=== PATIENT | female | born 1960 | race Caucasian/White ===

== ENCOUNTER 2025-07-19 05:41 | Day surgery (SDC) | payer MEDICARE, OTHER ==
[2025-07-19] VITALS (8 sets, daily range): BP systolic 123–159; BP diastolic 53–75; PULSE 45–73; RESP 14–16; TEMP 97.7; O2SAT 98–100
[~2025-07-19] VITALS: Ht 165.1 cm; Wt 70.0 kg
[~2025-07-19 05:41] MED LIST: IBAN150T21 PO; ROSU10TA98 PO
[2025-07-19] MEDS: ceFAZolin 2gm/dext,iso 50mL 50 ML IV ONE ×2 (06:30→06:31)
[2025-07-19] MEDS: ringers solution, lacted 1,000 ML IV SCH (06:37)
[2025-07-19] MEDS ORDERED: BUPIVAcaine/PF 2.5mg/ml (0.25%) 10ml vial ONE (06:51)
[2025-07-19] MEDS ORDERED: LIDOcaine 1% (10mg/ml)w/preservative inj. 20ml MDV ONE (06:52)
[2025-07-19 07:00] LABS: ISTAT ANION GAP 9.0 (8-12); ISTAT BUN 13.0 mg/dL (7-18); ISTAT CL 105.0 mmol/L (99-107); ISTAT CREATININE 0.7 mg/dL (0.6-1.1); ISTAT GLUCOSE 85.0 mg/dL (70-104); ISTAT HGB 11.6 g/dl (12.0-16.0); ISTAT Hct 34.0 %PCV (35-45); ISTAT IONIZED CALCIUM 1.24 mmol/L (1.03-1.32); ISTAT K 4.6 mmol/L (3.5-5.1); ISTAT NA 139.0 mmol/L (135-145); ISTAT TOTAL CO2 25.0 mmol/L (24-32); ISTAT eGFR 84.0 ML/MIN; POC BUN/CREATININE RATIO 18.6 (6.6-38.0)
[2025-07-19] MEDS ORDERED: LIDOcaine 2% (20mg/ml) 5ml vial ONE (07:18)
[2025-07-19] MEDS ORDERED: dexamethasone sod phosphate 4mg/ml inj. ONE (07:18)
[2025-07-19] MEDS ORDERED: fentaNYL/PF 50MCG/1 ML 2ML syringe ONE (07:18)
[2025-07-19] MEDS ORDERED: propofol inj 20 ML IV ONE (07:18)
[2025-07-19] MEDS ORDERED: midazolam 1 mg/ML 2ml injection ONE (07:18)
[2025-07-19] MEDS ORDERED: ondansetron/PF 4mg/2ml inj ONE (07:19)
[2025-07-19] MEDS ORDERED: fentaNYL/PF 50MCG/1 ML 2ML syringe IV PRN ×2 (07:25)
[2025-07-19] MEDS ORDERED: ondansetron/PF 4mg/2ml inj IV PRN (07:25)
[2025-07-19] MEDS ORDERED: ringers solution, lacted 1,000 ML IV SCH (07:25)
[2025-07-19] MEDS ORDERED: morphine 4 MG/ML inj SYRINge IV PRN (07:25)
[2025-07-19] MEDS ORDERED: labetalol 20mg/4ml (5mg/ml) syringe IV PRN (07:25)
[2025-07-19] MEDS ORDERED: hydrALAZINE 20mg/ml inj. IV PRN (07:25)
[2025-07-19] MEDS ORDERED: acetaminophen 1,000mg/100ml IV 100 ML IV ONE (07:54)
[2025-07-19] MEDS: BUPIVAcaine/PF 2.5mg/ml (0.25%) 10ml vial IJ ONE (08:10)
[2025-07-19] MEDS: LIDOcaine 1% 30ml preserv. free vial IJ ONE (08:14)
--- NOTE | 2025-07-19 08:51 | OPERATIVE REPORT ---
Operative Report Providers to CC: ANGEL ARTHUR DO ~ Date of Procedure: Jul 19, 2025 Pre-Operative Diagnosis: Right breast cancer, positive anterior and anterior inferior margin Post-Operative Diagnosis SAME as PRE-Op Procedure Performed Right breast re-excision lumpectomy of the anterior and inferior margins Surgeon: Dr. Angel Arthur Hand Worker instrumentation tech Anesthesiologist: Gomez Burgos Type of Anesthesia: General Findings: Right breast anterior margin and inferior margin and seroma Complications None Prosthetics\Implants used: None Estimated Blood Loss: Less than 5 mL Specimen Removed: Right breast anterior margin suture morales final margin Right breast inferior margin suture morales final margin Description of Procedure: Has been Luis Felipe 65-year-old female who was seen in the preoperative holding area by myself and the anesthesiologist. She had a right breast wire localized lumpectomy and sentinel lymph node biopsy at [facility]. The pathology report revealed a positive anterior and anterior inferior margin. I discussed the need to go back to re-excise for clear margins. Informed consent was obtained. The right breast was marked with my initials she was taken to the operative suite and placed on the table in supine position with the arms extended. General anesthesia was administered with an LMA. The glue was removed from the incision in the upper inner quadrant of the right breast. Patient was prepped and draped in a sterile fashion and a time-out was performed and agreed upon. 1% lidocaine was injected at the site. I opened the incision with a 15 blade. Then cut into the deep dermal layer into the subcutaneous space. Dark ammon seroma fluid was aspirated from the cavity. The cavity was evaluated and christina Vicryl suture was cut in the cavity to release the sutures. The anterior margin was excised carefully not to make the anterior wall to thin. The margin was completely excised and the suture marked the final margin. It was placed in formalin off the field. The inferior margin was also excised in the same fashion stabilized with two Allis clamps. The specimen was completely excised and removed from the cavity and the final margin was marked with a suture. The cavity was copiously irrigated and hemostasis was achieved with Bovie electrocautery. Prisca powder was placed in the cavity to assist with hemostasis. The skin was closed in the deep layer with 3-0 christina Vicryl suture interrupted, and 3-0 Vicryl suture in the deep dermal layer and a 2-0 Stratafix suture in the subcutaneous plane. 0.25% Marcaine was injected at the site. Glue was placed on the skin. A sterile dressing was placed over the incision and pressure dressings were applied. Patient tolerated procedure well and taken to recovery in stable condition. All needle and sponge counts were correct. Counts repoted as correct: Yes ANGEL ARTHUR DO Jul 19, 2025 08:50
[2025-07-19] MEDS: HYDROcodone/acetaminophen 5mg/325mg tablet PO ONE (10:08)
== END 2025-07-19 09:43 | disposition home or self-care (01) ==
LOC: PAS 05:41
PROVIDERS: ATTEND Surgery
DX: C50.211 Malignant neoplasm of upper-inner quadrant of right female breast (principal); E78.00 Pure hypercholesterolemia, unspecified; M81.0 Age-related osteoporosis without current pathological fracture; Z79.891 Long term (current) use of opiate analgesic; Z79.899 Other long term (current) drug therapy; Z90.2 Acquired absence of lung [part of]; Z98.891 History of uterine scar from previous surgery
CPT/HCPCS: 19301; 80047; 88307; A4215; A4618; A6253; A6258; A7000; J0131; J1100; J2003; J2250; J2405; J2704; J3010; J3490; J7030; J7120; Z7506; Z7508; Z7512; Z7610